=== PATIENT | male | born 1950 | race African-American/Black ===

== ENCOUNTER → 2023-02-17 | Day surgery (SDC) | payer MEDICARE ==
[~2023-02-17] MED LIST: Iopamidol-M 200 41% 10 ML VIAL FS ONE; Lidocaine 1% PF 5 ML VIAL ONE; Sodium Bicarbonate 2.5 MEQ/5 ML VIAL ONE
== END ==
LOC: CSHRAD 07:32 → EDSTATUS 08:00
PROVIDERS: ATTEND Physician Assistant
PROC: B01BYZZ Fluoroscopy of Spinal Cord using Other Contrast (ICD-10-PCS; principal; 2023-02-17)
DX: M48.062 Spinal stenosis, lumbar region with neurogenic claudication (principal); M51.16 Intervertebral disc disorders with radiculopathy, lumbar region; I10 Essential (primary) hypertension
CPT/HCPCS: 62304; 72110; 72132; Q9966